=== PATIENT | female | born 1975 | race Caucasian/White ===

== ENCOUNTER 2021-05-14 09:39 | Day surgery (SDC) | payer BC ==
[2021-05-10 14:22] VITALS: BMI 22.8
[2021-05-14] MEDS ORDERED: PROPOFOL 20 ML ONE ×3 (10:54)
[2021-05-14 11:49] VITALS: PULSE 60; TEMP 97.2
[2021-05-14 12:04] VITALS: BP 111/61
== END 2021-05-14 12:15 | disposition home or self-care (01) ==
LOC: FASU-ENDO 09:39
PROVIDERS: ATTEND Internal Medicine Gastroenterology
PROC: 0DB98ZX Excision of Duodenum, Via Natural or Artificial Opening Endoscopic, Diagnostic (ICD-10-PCS; 2021-05-14)
PROC: 0DB68ZX Excision of Stomach, Via Natural or Artificial Opening Endoscopic, Diagnostic (ICD-10-PCS; 2021-05-14)
PROC: 0DJD8ZZ Inspection of Lower Intestinal Tract, Via Natural or Artificial Opening Endoscopic (ICD-10-PCS; principal; 2021-05-14 11:06)
DX: Z12.11 Encounter for screening for malignant neoplasm of colon (principal); K29.50 Unspecified chronic gastritis without bleeding; K29.80 Duodenitis without bleeding; R10.13 Epigastric pain
CPT/HCPCS: 84703; 88305-TC; 88342-TC

== ENCOUNTER 2021-06-05 04:27 | Day surgery (SDC) | payer BC ==
[2021-06-04 12:34] VITALS: BMI 22.3
[2021-06-05] MEDS ORDERED: BUPIVACAINE HCL/PF 0.5% (5MG/ML) 10 ML VIAL ONE (08:56)
[2021-06-05] MEDS ORDERED: LIDOCAINE HCL 1%, 10 MG/ML (20ML VIAL) ONE (08:56)
[2021-06-05] MEDS ORDERED: DEXAMETHASONE SOD PHOSPHATE 4 MG/1 ML VIAL ONE (09:01)
[2021-06-05] MEDS ORDERED: LIDOCAINE HCL/PF 2% SDV 5ML VIAL ONE (09:01)
[2021-06-05] MEDS ORDERED: PROPOFOL 20 ML ONE (09:01)
[2021-06-05] MEDS ORDERED: MIDAZOLAM HCL 2 MG/2 ML SINGLE DOSE VIAL ONE (09:01)
[2021-06-05] MEDS ORDERED: ONDANSETRON 4 MG/2 ML VIAL IVPUSH PRN (09:19)
[2021-06-05] MEDS ORDERED: oxyCODONE HCL 5 MG TABLET PO PRN (09:19)
[2021-06-05] MEDS ORDERED: LACTATED RINGERS SOLUTION 1,000 ML IV SCH (09:30)
[2021-06-05] MEDS ORDERED: ceFAZolin SODIUM 1 GM VIAL ONE (10:05)
[2021-06-05] MEDS ORDERED: ceFAZolin 2 GRAM PREMIX BAG IVPB ONE (10:07)
[2021-06-05] MEDS ORDERED: BUPIVACAINE HCL/PF 0.5% (5MG/ML) 10 ML VIAL IJ ONE ×2 (10:17)
[2021-06-05] MEDS ORDERED: LIDOCAINE HCL 1%, 10 MG/ML (20ML VIAL) NR ONE ×2 (10:17)
[2021-06-05] MEDS ORDERED: BENZOIN/ALOE VERA/STORAX/TOLU 58 ML BOTTLE TP ONE (10:39)
[2021-06-05 11:53] VITALS: BP 115/72; PULSE 65; TEMP 98.1
== END 2021-06-05 11:30 | disposition home or self-care (01) ==
LOC: JASU-SURG 04:27
PROVIDERS: ATTEND Surgery
PROC: 0HB5XZZ Excision of Chest Skin, External Approach (ICD-10-PCS; principal; 2021-06-05 09:30)
DX: L82.1 Other seborrheic keratosis (principal)
CPT/HCPCS: 81025; 88305-TC

== ENCOUNTER 2024-06-08 10:17 | Emergency (ER) | payer BC ==
[2024-06-08] MEDS ORDERED: MECLIZINE HCL 25 MG TABLET (FP) ONE (11:04)
[2024-06-08] MEDS: MECLIZINE HCL 25 MG TABLET (FP) PO ONE (11:49)
[2024-06-08] MEDS: LACTATED RINGERS SOLUTION 1000 ML INFUS.BAG IV ONE (11:50)
[2024-06-08 11:51] VITALS: RESP 20; TEMP 97.6; BMI 23.0
[2024-06-08 12:02] LABS: EPI CELLS 6 /uL (0-25.1); HYALINE CASTS 0 /uL (0-3.1); URINE APPEARANCE CLEAR; URINE BACTERIA 52 /uL (0-1359); URINE BILIRUBIN NEGATIVE (NEGATIVE); URINE COLOR YELLOW; URINE GLUCOSE (UA) NEGATIVE (NEGATIVE); URINE KETONE TRACE (NEGATIVE); URINE LEUK ESTERASE NEGATIVE (NEGATIVE); URINE NITRITE NEGATIVE (NEGATIVE); URINE PROTEIN NEGATIVE (NEGATIVE); URINE RBC 19 /uL (0-23.9); URINE UROBILINOGEN 0.2 mg/dL (0.2-1.0); URINE WBC 2 /uL (0-25.8)
[2024-06-08 12:18] VITALS: BP 118/74; PULSE 60
[2024-06-08 12:33] LABS: HEMATOCRIT 32.3 % (32.4-45.2); HEMOGLOBIN 10.6 GM/dL (10.7-15.3); MCH 25.8 pg (25.7-33.7); MCHC 32.9 g/dl (32.0-36.0); MEAN CELL VOLUME 78.4 fl (80-96); MEAN PLT VOLUME 8.7 fl (7.5-11.1); PLATELET COUNT 261 10^3/uL (134-434); RBC 4.12 M/mm3 (3.60-5.2); RDW 17.1 % (11.6-15.6)
[2024-06-08 12:38] LABS: WHITE BLOOD COUNT 7.8 K/mm3 (4.0-10.0)
[2024-06-08 12:45] LABS: POTASSIUM 4.7 mmol/L (3.5-5.1)
[2024-06-08 12:47] LABS: CALCIUM 9.2 mg/dL (8.5-10.1)
[2024-06-08 12:48] LABS: ALBUMIN 4.2 g/dl (3.4-5.0); BLOOD UREA NITROGEN 16.1 mg/dL (7-18); MAGNESIUM 2.2 mg/dL (1.8-2.4)
[2024-06-08 12:50] LABS: CREATININE 0.6 mg/dL (0.55-1.3)
[2024-06-08 12:52] LABS: BILIRUBIN,TOTAL 0.5 mg/dL (0.2-1); TOT PROT 7.5 g/dl (6.4-8.2)
[2024-06-08 13:22] LABS: ANISOCYTOSIS 3+; MACROCYTOSIS 0
[2024-06-08 13:37] LABS: HIV INTERPRETATION NEGATIVE (NEGATIVE)
== END 2024-06-08 14:31 | disposition home or self-care (01) ==
LOC: JER 10:17
DX: H81.10 Benign paroxysmal vertigo, unspecified ear (principal); R11.0 Nausea
CPT/HCPCS: 36415; 71045-TC-FY; 80053; 81003; 82962; 83735; 84484; 84703; 85025; 86803; 87086; 87389; 93005; 93010; 99285-25